=== PATIENT | female | born 2005 ===

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

== ENCOUNTER 2023-03-26 15:07 | Emergency (ER) | payer MEDICAID, SELFPAY ==
--- NOTE | ~2023-03-26 | US_ITS ---
EXAMINATION: US OBSTETRICAL ULTRASOUND CLINICAL INFORMATION: Vaginal spotting. Positive COMPARISON: None available.. LMP: 02/10/2023. Gestational age by maternal dates is 6 weeks 2 days. Estimated date of delivery by maternal dates is 11/17/2023. TECHNIQUE: Transabdominal endovaginal pelvic ultrasound FINDINGS: There is a single intrauterine gestational sac with visible yolk sac, embryo/fetus, and cardiac activity. There is no significant subchorionic hemorrhage or hematoma. HR: 118 beats per minute. CRL (crown rump length): 0.86 cm (6 weeks 6 days +/- 4 days). ROSA ISELA (estimated date of delivery): 11/13/2023 +/- 4 days. MATERNAL ADNEXA: The right maternal ovary measures 3.6 x 2.1 x 3.0 cm. Corpus luteal cyst measuring 2 cm The left maternal ovary not visualized. There is no significant maternal adnexal mass. No maternal pelvic ascites. Trace implantation bleed noted. US/US OB <= 14 weeks fetus IMPRESSION: 1. Single intrauterine gestation with ultrasound gestational age of 6 weeks 6 days +/- 4 days. 2. Estimated date of delivery is 11/13/2023 +/- 4 days. 3. No maternal adnexal mass or pelvic ascites.
[2023-03-26 15:27] VITALS: BP 122/80; PULSE 90; RESP 16; TEMP 36.6; O2SAT 99; BMI 19.9
--- NOTE | 2023-03-26 15:30 | ED_ITS ---
HPI - General Adult General Chief complaint: Vaginal Bleeding <SALVADOR Crow - Last Filed: 03/28/23 12:28> Stated complaint: /bleeding <SALVADOR Crow - Last Filed: 03/28/23 12:28> Time Seen by Provider: 03/26/23 19:29 <SALVADOR Crow - Last Filed: 03/28/23 12:28> Source: patient and family <Wendy Sexton MD - Last Filed: 03/26/23 20:46> Mode of arrival: ambulatory <Wendy Sexton MD - Last Filed: 03/26/23 20:46> History of Present Illness HPI narrative: 17-year-old female who knows that she is and presents with complaints of some very mild, 1 time, vaginal spotting on tele paper this morning. She otherwise denies any lower abdominal cramping. <Wendy Sexton MD - Last Filed: 03/26/23 20:46> Related Data Home medications: Previous Rx's Medication Instructions Recorded cetirizine 10 mg capsule (Allergy 10 mg PO DAILY PRN allergy 09/09/21 Relief (cetirizine)) symptoms #20 caps fluticasone propionate 50 1 spray intranasal DAILY #16 grams 09/09/21 mcg/actuation nasal spray,suspension (Flonase Allergy Relief) pyridoxine (vitamin B6) 25 mg 25 mg PO TID #90 tabs 03/26/23 tablet <SALVADOR Crow - Last Filed: 03/28/23 12:28> Allergies/adverse reactions: Allergies Allergy/AdvReac Type Severity Reaction Status Date / Time No Known Allergies Allergy Verified 03/26/23 15:26 [No Known Allergies*] <SALVADOR Crow - Last Filed: 03/28/23 12:28> Review of Systems Review of Systems: Pertinent positives and negatives as stated in HPI <Wendy Sexton MD - Last Filed: 03/26/23 20:46> PMFSH Past Medical History Source: nursing notes reviewed <Wendy Sexton MD - Last Filed: 03/26/23 20:46> Medical History: Medical History Patient denies medical problems <SALVADOR Crow - Last Filed: 03/28/23 12:28> Social History Social History: Social History Advance Directives: No Advance Directives Information Provided: No <SALVADOR Crow - Last Filed: 03/28/23 12:28> Physical Exam ED Vital Signs: Vital Signs - 24 hr 03/26/23 15:27 Temperature 97.9 F Pulse Rate 90 Respiratory Rate 16 Blood Pressure 122/80 Pulse Oximetry 99 Oxygen Delivery Method Room Air BMI result Body Mass Index 19.9 <SALVADOR Crow - Last Filed: 03/28/23 12:28> Vital Signs - 24 hr 03/26/23 15:27 Temperature 97.9 F Pulse Rate 90 Respiratory Rate 16 Blood Pressure 122/80 Pulse Oximetry 99 Oxygen Delivery Method Room Air BMI result Body Mass Index 19.9 VITAL SIGNS: Reviewed. GENERAL: Well developed, well nourished, in no acute distress. HEAD: Normocephalic/atraumatic EYES: PERRLA, EOMI EARS: Ext canals without abnormality NOSE: Nares patent bilateral OROPHARYNX: no oral lesions noted, posterior pharynx clear NECK: Supple, no adenopathy LUNGS: Normal breath sounds. No adventitious sounds or accessory muscle use. SpO2<99> CARDIOVASCULAR: Regular rate and rhythm without noted murmurs, ABDOMEN: Soft, non-tender, non-distended with bowel sounds. MUSCULOSKELETAL: No tenderness, deformities, or effusions noted on gross inspection. EXTREMITIES: No cyanosis, clubbing or edema. SKIN: Inspection of the skin reveals no rashes NEUROLOGIC: Alert and oriented x 4. Strength and sensation to light touch were grossly intact x 4. <Wendy Sexton MD - Last Filed: 03/26/23 20:46> Course Course Course Narrative: RME: 17 yold female presents to the ED for and vaginal spotting after urinating. no abdominal pain, nausea, fever, chills, or flank pain. . labs, ultrasound ordered and uA <SALVADOR Crow - Last Filed: 03/28/23 12:28> Medical Decision Making Medical Decision Making MDM Narrative: 17-year-old female with LMP this suggests a 6 week and 3-day-old fetus and experiencing some -related nausea but denies any vomiting. She states she is otherwise in her usual state of health and has followed up with her primary care provider who is referred her to see an pleat patternmaker. I reviewed all investigations and patient is a positive precluding the necessity for RhoGAM. She is otherwise hemodynamically stable. Ultrasound demonstrates an IUP without subchorionic hemorrhage but does note a trace implantation bleed. Estimation of dates are 6 weeks and 6 days. Patient was given all results, p lans and understands that she will be receiving a prescription for antinausea which she should take each day to help stay well hydrated. <Wendy Sexton MD - Last Filed: 03/26/23 20:46> Differential Diagnosis Please see the discussion above <Wendy Sexton MD - Last Filed: 03/26/23 20:46> Lab Data Please see the discussion above <Wendy Sexton MD - Last Filed: 03/26/23 20:46> Result Diagrams: 03/26/23 16:00 03/26/23 16:00 <SALVADOR Crow - Last Filed: 03/28/23 12:28> Labs: Lab Results 03/26/23 03/26/23 03/26/23 Range/Units 15:48 15:49 16:00 WBC 8.1 (4.8-10.8) X10*3/uL RBC 4.32 (4.20-5.50) X10*6/uL Hgb 12.3 (12.0-16.0) g/dl Hct 36.3 L (37.0-47.0) % MCV 84.0 (80.0-98.0) fL MCH 28.5 (27.0-33.0) pg MCHC 33.9 (31.0-35.0) g/dl RDW 14.0 (11.0-16.0) % Plt Count 288 (160-400) X10*3/uL MPV 9.3 L (9.4-12.3) fL Immature Gran % (Auto) 0.2 (0.0-0.4) % Neut % (Auto) 68.4 (45-73) % Lymph % (Auto) 23.8 (20-40) % Robeson % (Auto) 6.5 (2-11) % Eos % (Auto) 0.6 (0-4) % Baso % (Auto) 0.5 (0-2) % Lymph # (Auto) 1.9 (1.2-4.9) X10*3/uL [place] # (Auto) 0.5 (0.1-1.2) X10*3/uL Eos # (Auto) 0.1 (0.0-0.4) X10*3/uL Baso # (Auto) 0.0 (0.0-0.2) X10*3/uL Abs Immat Gran (auto) 0.02 (0.00-0.03) X10*3/uL Absolute Neuts (auto) 5.5 (2.0-8.3) x10*3/uL Absolute Nucleated RBC 0.000 (0.0-0.012) X10*3/uL Nucleated RBC % (auto) 0.0 (0.0-0.2) /100WBC PT (10.0-13.1) SEC INR (0.9-1.1) APTT (26.0-36.4) SEC Sodium (135-145) mmol/L Potassium (3.3-5.1) mmol/L Chloride (96-108) mmol/L Carbon Dioxide (22-29) mmol/L Anion Gap (12-20) BUN (9-16) mg/dL Creatinine (0.5-1.4) mg/dL Estim Creat Clear Calc Estimated GFR Random Glucose (60-115) mg/dL Calcium (8.4-10.2) mg/dL Total Bilirubin (0.0-1.0) mg/dL AST (5-31) U/L ALT (0-31) U/L Alkaline Phosphatase (39-117) U/L Total Protein (6.5-8.0) g/dL Albumin (3.5-5.0) g/dL Urine Color Dark Yellow Urine Appearance Turbid Urine pH >= 9.0 (5.0-9.0) Ur Specific [place] 1.020 (1.005-1.025) Urine Protein 30 (1+) H (Neg-Trace) mg/dL Urine Glucose (UA) Negative (Negative) mg/dL Urine Ketones 15 (Negative) mg/dL Urine Blood Negative (Negative) Urine Nitrite Negative (Negative) Ur Leukocyte Esterase Negative (Negative) Urine RBC 0-2 (0-2) /HPF Urine WBC 0-5 (0-5) /HPF Ur Squamous Epith Cells 3-5 (0-2) /HPF Urine Bacteria Trace (None Seen) Hyaline Casts 0-2 (0-2) /LPF Urine Test POSITIVE H (NEGATIVE) Blood Type 03/26/23 03/26/23 03/26/23 Range/Units 16:00 16:00 16:00 WBC (4.8-10.8) X10*3/uL RBC (4.20-5.50) X10*6/uL Hgb (12.0-16.0) g/dl Hct (37.0-47.0) % MCV (80.0-98.0) fL MCH (27.0-33.0) pg MCHC (31.0-35.0) g/dl RDW (11.0-16.0) % Plt Count (160-400) X10*3/uL MPV (9.4-12.3) fL Immature Gran % (Auto) (0.0-0.4) % Neut % (Auto) (45-73) % Lymph % (Auto) (20-40) % Robeson % (Auto) (2-11) % Eos % (Auto) (0-4) % Baso % (Auto) (0-2) % Lymph # (Auto) (1.2-4.9) X10*3/uL [place] # (Auto) (0.1-1.2) X10*3/uL Eos # (Auto) (0.0-0.4) X10*3/uL Baso # (Auto) (0.0-0.2) X10*3/uL Abs Immat Gran (auto) (0.00-0.03) X10*3/uL Absolute Neuts (auto) (2.0-8.3) x10*3/uL Absolute Nucleated RBC (0.0-0.012) X10*3/uL Nucleated RBC % (auto) (0.0-0.2) /100WBC PT 12.5 (10.0-13.1) SEC INR 1.1 (0.9-1.1) APTT 28.2 (26.0-36.4) SEC Sodium 139 (135-145) mmol/L Potassium 4.1 (3.3-5.1) mmol/L Chloride 105 (96-108) mmol/L Carbon Dioxide 27 (22-29) mmol/L Anion Gap 11 L (12-20) BUN 7 L (9-16) mg/dL Creatinine 0.68 (0.5-1.4) mg/dL Estim Creat Clear Calc 95.5 Estimated GFR > 60 Random Glucose 80 (60-115) mg/dL Calcium 10.6 H D (8.4-10.2) mg/dL Total Bilirubin 0.7 (0.0-1.0) mg/dL AST 19 (5-31) U/L ALT 11 (0-31) U/L Alkaline Phosphatase 54 (39-117) U/L Total Protein 8.1 H (6.5-8.0) g/dL Albumin 4.9 (3.5-5.0) g/dL Urine Color Urine Appearance Urine pH (5.0-9.0) Ur Specific [place] (1.005-1.025) Urine Protein (Neg-Trace) mg/dL Urine Glucose (UA) (Negative) mg/dL Urine Ketones (Negative) mg/dL Urine Blood (Negative) Urine Nitrite (Negative) Ur Leukocyte Esterase (Negative) Urine RBC (0-2) /HPF Urine WBC (0-5) /HPF Ur Squamous Epith Cells (0-2) /HPF Urine Bacteria (None Seen) Hyaline Casts (0-2) /LPF Urine Test (NEGATIVE) Blood Type A Positive <SALVADOR Crow - Last Filed: 03/28/23 12:28> Lab Results 03/26/23 03/26/23 03/26/23 Range/Units 15:48 15:49 16:00 WBC 8.1 (4.8-10.8) X10*3/uL RBC 4.32 (4.20-5.50) X10*6/uL Hgb 12.3 (12.0-16.0) g/dl Hct 36.3 L (37.0-47.0) % MCV 84.0 (80.0-98.0) fL MCH 28.5 (27.0-33.0) pg MCHC 33.9 (31.0-35.0) g/dl RDW 14.0 (11.0-16.0) % Plt Count 288 (160-400) X10*3/uL MPV 9.3 L (9.4-12.3) fL Immature Gran % (Auto) 0.2 (0.0-0.4) % Neut % (Auto) 68.4 (45-73) % Lymph % (Auto) 23.8 (20-40) % [place] % (Auto) 6.5 (2-11) % Eos % (Auto) 0.6 (0-4) % Baso % (Auto) 0.5 (0-2) % Lymph # (Auto) 1.9 (1.2-4.9) X10*3/uL [place] # (Auto) 0.5 (0.1-1.2) X10*3/uL Eos # (Auto) 0.1 (0.0-0.4) X10*3/uL Baso # (Auto) 0.0 (0.0-0.2) X10*3/uL Abs Immat Gran (auto) 0.02 (0.00-0.03) X10*3/uL Absolute Neuts (auto) 5.5 (2.0-8.3) x10*3/uL Absolute Nucleated RBC 0.000 (0.0-0.012) X10*3/uL Nucleated RBC % (auto) 0.0 (0.0-0.2) /100WBC PT (10.0-13.1) SEC INR (0.9-1.1) APTT (26.0-36.4) SEC Sodium (135-145) mmol/L Potassium (3.3-5.1) mmol/L Chloride (96-108) mmol/L Carbon Dioxide (22-29) mmol/L Anion Gap (12-20) BUN (9-16) mg/dL Creatinine (0.5-1.4) mg/dL Estim Creat Clear Calc Estimated GFR Random Glucose (60-115) mg/dL Calcium (8.4-10.2) mg/dL Total Bilirubin (0.0-1.0) mg/dL AST (5-31) U/L ALT (0-31) U/L Alkaline Phosphatase (39-117) U/L Total Protein (6.5-8.0) g/dL Albumin (3.5-5.0) g/dL Urine Color Dark Yellow Urine Appearance Turbid Urine pH >= 9.0 (5.0-9.0) Ur Specific [place] 1.020 (1.005-1.025) Urine Protein 30 (1+) H (Neg-Trace) mg/dL Urine Glucose (UA) Negative (Negative) mg/dL Urine Ketones 15 (Negative) mg/dL Urine Blood Negative (Negative) Urine Nitrite Negative (Negative) Ur Leukocyte Esterase Negative (Negative) Urine RBC 0-2 (0-2) /HPF Urine WBC 0-5 (0-5) /HPF Ur Squamous Epith Cells 3-5 (0-2) /HPF Urine Bacteria Trace (None Seen) Hyaline Casts 0-2 (0-2) /LPF Urine Test POSITIVE H (NEGATIVE) Blood Type 03/26/23 03/26/23 03/26/23 Range/Units 16:00 16:00 16:00 WBC (4.8-10.8) X10*3/uL RBC (4.20-5.50) X10*6/uL Hgb (12.0-16.0) g/dl Hct (37.0-47.0) % MCV (80.0-98.0) fL MCH (27.0-33.0) pg MCHC (31.0-35.0) g/dl RDW (11.0-16.0) % Plt Count (160-400) X10*3/uL MPV (9.4-12.3) fL Immature Gran % (Auto) (0.0-0.4) % Neut % (Auto) (45-73) % Lymph % (Auto) (20-40) % [place]eson % (Auto) (2-11) % Eos % (Auto) (0-4) % Baso % (Auto) (0-2) % Lymph # (Auto) (1.2-4.9) X10*3/uL [place] # (Auto) (0.1-1.2) X10*3/uL Eos # (Auto) (0.0-0.4) X10*3/uL Baso # (Auto) (0.0-0.2) X10*3/uL Abs Immat Gran (auto) (0.00-0.03) X10*3/uL Absolute Neuts (auto) (2.0-8.3) x10*3/uL Absolute Nucleated RBC (0.0-0.012) X10*3/uL Nucleated RBC % (auto) (0.0-0.2) /100WBC PT 12.5 (10.0-13.1) SEC INR 1.1 (0.9-1.1) APTT 28.2 (26.0-36.4) SEC Sodium 139 (135-145) mmol/L Potassium 4.1 (3.3-5.1) mmol/L Chloride 105 (96-108) mmol/L Carbon Dioxide 27 (22-29) mmol/L Anion Gap 11 L (12-20) BUN 7 L (9-16) mg/dL Creatinine 0.68 (0.5-1.4) mg/dL Estim Creat Clear Calc 95.5 Estimated GFR > 60 Random Glucose 80 (60-115) mg/dL Calcium 10.6 H D (8.4-10.2) mg/dL Total Bilirubin 0.7 (0.0-1.0) mg/dL AST 19 (5-31) U/L ALT 11 (0-31) U/L Alkaline Phosphatase 54 (39-117) U/L Total Protein 8.1 H (6.5-8.0) g/dL Albumin 4.9 (3.5-5.0) g/dL Urine Color Urine Appearance Urine pH (5.0-9.0) Ur Specific [place] (1.005-1.025) Urine Protein (Neg-Trace) mg/dL Urine Glucose (UA) (Negative) mg/dL Urine Ketones (Negative) mg/dL Urine Blood (Negative) Urine Nitrite (Negative) Ur Leukocyte Esterase (Negative) Urine RBC (0-2) /HPF Urine WBC (0-5) /HPF Ur Squamous Epith Cells (0-2) /HPF Urine Bacteria (None Seen) Hyaline Casts (0-2) /LPF Urine Test (NEGATIVE) Blood Type A Positive <Wendy Sexton MD - Last Filed: 03/26/23 20:46> Radiology Impression Radiologist Impression: My interpretation is in agreement with radiology's impression of the imaging studies. <Wendy Sexton MD - Last Filed: 03/26/23 20:46> Discharge Plan Discharge Clinical Impression: , First trimester bleeding <SALVADOR Crow - Last Filed: 03/28/23 12:28> Patient Disposition: Home, Self-Care <SALVADOR Crow - Last Filed: 03/28/23 12:28> Instructions: (ED) <SALVADOR Crow - Last Filed: 03/28/23 12:28> Additional Instructions: 1. Ely meagn agua y solo tome Tylenol para cualquier dolor, molestia o dolor de camille. 2. Contin?e tomando tomas vitaminas prenatales. 3. Le gutierrez recetado un medicamento contra las n?useas y debe tomarlo seg?n lo prescrito. 4. Acuda a todas las citas de seguimiento de cabrera embarazo. Regrese a la bryce de emergencias si los s?ntomas empeoran. 1. Drink plenty of water and only take Tylenol for any aches, pains, headaches. 2. Continue to take your vitamins. 3. You have been given a prescription for antinausea medication and should take this as prescribed. 4. Please keep all follow-up appointments for your . Return to the ER for any worsening symptoms. <SALVADOR Crow - Last Filed: 03/28/23 12:28> Prescriptions: New pyridoxine (vitamin B6) 25 mg tablet 25 mg PO TID Qty: 90 0RF No Action Allergy Relief (cetirizine) 10 mg capsule 10 mg PO DAILY PRN (Reason: allergy symptoms) Qty: 20 0RF fluticasone propionate [Flonase Allergy Relief] 50 mcg/actuation spray,suspension 1 spray intranasal DAILY Qty: 16 0RF Rx Instructions: administer into each nostril <SALVADOR Crow - Last Filed: 03/28/23 12:28> Interventions: ED Discharge Assessment Last Done: 03/26/23 20:50 <SALVADOR Crow Last Filed: 03/28/23 12:28> Discharge Date/Time: 03/26/23 20:52 <SALVADOR Crow - Last Filed: 03/28/23 12:28> Print Language: Syriac <SALVADOR Crow - Last Filed: 03/28/23 12:28>
[2023-03-26 15:55] LABS: UPreg QC Valid YES; Urine Pregnancy POSITIVE (NEGATIVE)
[2023-03-26 15:56] LABS: Appearance Urine Turbid; Color Urine Dark Yellow; Glucose Urine UA Negative (Negative); Leukocyte Esterase Urine Negative (Negative); Nitrite Urine Negative (Negative); PH >= 9.0 (5.0-9.0); UMIC TRIGGER UACC YES; Urine Blood Negative (Negative); Urine Ketones 15 mg/dL (Negative); Urine Protein 30 (1+) mg/dL (Neg-Trace)
[2023-03-26 16:01] LABS: Bacteria Urine Trace (None Seen); Hyaline Casts Urine 0-2 /LPF (0-2); RBC Urine 0-2 /HPF (0-2); WBC Urine 0-5 /HPF (0-5)
[2023-03-26 16:06] LABS: MANUAL DIFF FLAG NO
[2023-03-26 16:07] LABS: Basophils Percent Auto 0.5 % (0-2); Eosinophils Absolute Auto 0.1 X10*3/uL (0.0-0.4); Eosinophils Percent Auto 0.6 % (0-4); Hematocrit 36.3 % (37.0-47.0); Hemoglobin 12.3 g/dl (12.0-16.0); Imm Gran Abs Auto 0.02 X10*3/uL (0.00-0.03); Imm Gran Pct Auto 0.2 % (0.0-0.4); Lymphocytes Absolute Auto 1.9 X10*3/uL (1.2-4.9); Lymphocytes Percent Auto 23.8 % (20-40); Mean Corpuscular HGB Conc 33.9 g/dl (31.0-35.0); Mean Corpuscular Hemoglobin 28.5 pg (27.0-33.0); Mean Platelet Volume 9.3 fL (9.4-12.3); Monocytes Absolute Auto 0.5 X10*3/uL (0.1-1.2); Monocytes Percent Auto 6.5 % (2-11); Neutrophils Absolute Auto 5.5 x10*3/uL (2.0-8.3); Neutrophils Percent Auto 68.4 % (45-73); Platelet Count 288 X10*3/uL (160-400); Red Blood Count 4.32 X10*6/uL (4.20-5.50); White Blood Count 8.1 X10*3/uL (4.8-10.8)
[2023-03-26 16:14] LABS: INTERNATIONAL NORM RATIO 1.1 (0.9-1.1); Prothrombin Time 12.5 SEC (10.0-13.1)
[2023-03-26 16:16] LABS: Partial Thromboplastin Time 28.2 SEC (26.0-36.4)
[2023-03-26 16:21] LABS: Alanine Aminotransferase 11 U/L (0-31); Albumin Level 4.9 g/dL (3.5-5.0); Alkaline Phosphatase 54 U/L (39-117); Anion Gap 11 (12-20); Aspartate Amino Transferase 19 U/L (5-31); Bilirubin Total 0.7 mg/dL (0.0-1.0); Blood Urea Nitrogen 7 mg/dL (9-16); Calcium 10.6 mg/dL (8.4-10.2); Carbon Dioxide 27 mmol/L (22-29); Chloride 105 mmol/L (96-108); Creatinine Clr Calc Pharmacy 95.5; Estimated Glomerular Filt Rate > 60; Glucose Random 80 mg/dL (60-115); Potassium 4.1 mmol/L (3.3-5.1); Sodium 139 mmol/L (135-145); Total Protein 8.1 g/dL (6.5-8.0)
== END 2023-03-26 20:52 | disposition home or self-care (01) ==
PROVIDERS: Physician Assistant; Emergency Provider Student in an Organized Health Care Education/Training Program
DX: O20.9 Hemorrhage in early pregnancy, unspecified (principal); Z3A.01 Less than 8 weeks gestation of pregnancy; Z79.899 Other long term (current) drug therapy
CPT/HCPCS: 36415; 76801; 80053; 81001; 81025; 85025; 85610; 85730; 86900; 86901; 99282; 99283; 99284

== ENCOUNTER 2024-04-13 08:48 | Emergency (ER) | payer MEDICAID, SELFPAY ==
[2024-04-13 09:01] VITALS: BP 125/82; PULSE 114; RESP 15; TEMP 36.6; O2SAT 98; BMI 20.6
[2024-04-13 09:20] LABS: Appearance Urine Hazy; Color Urine Yellow; Glucose Urine UA Negative (Negative); Leukocyte Esterase Urine Negative (Negative); Nitrite Urine Negative (Negative); Specific Gravity - Urine >= 1.030 (1.005-1.025); Urine Blood Negative (Negative); Urine Ketones >=80 mg/dL (Negative); Urine Protein Trace mg/dL (Neg-Trace)
[2024-04-13 09:21] LABS: Basophils Percent Auto 0.2 % (0-2); Eosinophils Percent Auto 0.3 % (0-4); Hematocrit 40.2 % (37.0-47.0); Hemoglobin 13.7 g/dl (12.0-16.0); Imm Gran Abs Auto 0.04 X10*3/uL (0.00-0.03); Imm Gran Pct Auto 0.4 % (0.0-0.4); Lymphocytes Absolute Auto 0.3 X10*3/uL (1.2-4.9); Lymphocytes Percent Auto 3.4 % (20-40); MANUAL DIFF FLAG SCAN; Mean Corpuscular HGB Conc 34.1 g/dl (31.0-35.0); Mean Corpuscular Hemoglobin 29.9 pg (27.0-33.0); Mean Corpuscular Volume 87.8 fL (80.0-98.0); Mean Platelet Volume 9.5 fL (9.4-12.3); Monocytes Absolute Auto 0.4 X10*3/uL (0.1-1.2); Monocytes Percent Auto 3.8 % (2-11); Neutrophils Absolute Auto 8.9 x10*3/uL (2.0-8.3); Neutrophils Percent Auto 91.9 % (45-73); Platelet Count 288 X10*3/uL (160-400); Red Blood Count 4.58 X10*6/uL (4.20-5.50); Red Cell Distribution Width 12.4 % (11.0-16.0); SCAN SMEAR FLAG 1; UPreg QC Valid YES; Urine Pregnancy NEGATIVE (NEGATIVE); White Blood Count 9.7 X10*3/uL (4.8-10.8)
[2024-04-13 09:33] LABS: Alanine Aminotransferase 8 U/L (0-31); Albumin Level 4.8 g/dL (3.5-5.0); Alkaline Phosphatase 110 U/L (39-117); Anion Gap 17 (12-20); Aspartate Amino Transferase 16 U/L (5-31); Bilirubin Direct 0.2 mg/dL (0.0-0.5); Bilirubin Total 0.6 mg/dL (0.0-1.0); Blood Urea Nitrogen 12 mg/dL (9-16); Calcium 9.8 mg/dL (8.4-10.2); Carbon Dioxide 21 mmol/L (22-29); Chloride 108 mmol/L (96-108); Creatinine Clr Calc Pharmacy 97.2; Estimated Glomerular Filt Rate > 60; Glucose Random 124 mg/dL (60-115); Lipase 9 U/L (8-78); Potassium 4.1 mmol/L (3.3-5.1); Sodium 142 mmol/L (135-145); Total Protein 7.9 g/dL (6.5-8.0)
[2024-04-13 09:42] LABS: SLIDE REVIEW VERIFIED
--- NOTE | 2024-04-13 11:18 | ED_ITS ---
HPI - Nausea/Vomiting/Diarrhea General Chief complaint: Nausea/Vomiting/Diarrhea Stated complaint: vomitting Time Seen by Provider: 04/13/24 16:02 Source: patient, RN notes reviewed, old records reviewed and stunner Mode of arrival: ambulatory Limitations: language barrier History of Present Illness HPI Narrative: 18-year-old female who denies any past medical history presents for evaluation of vomiting. Patient reports that her symptoms started around 1:00 a.m. this morning. She states that they worsened between 5 and 6:00 a.m.. She reports vomiting with diarrhea. She reports generalized abdominal pain Denies any history abdominal surgeries. Denies any fevers, chills, sick contacts Denies any burning with urination black or bloody stool Denies any recent travel She rates her overall discomfort as 5/10 and achy She endorses associated weakness Associated nausea: Yes Related Data Previous Rx's ?Medication ?Instructions ?Recorded cetirizine 10 mg capsule (Allergy 10 mg PO DAILY PRN allergy 09/09/21 Relief (cetirizine)) symptoms #20 caps fluticasone propionate 50 1 spray intranasal DAILY #16 grams 09/09/21 mcg/actuation nasal spray,suspension (Flonase Allergy Relief) pyridoxine (vitamin B6) 25 mg 25 mg PO TID #90 tabs 03/26/23 tablet ondansetron 4 mg disintegrating 4 mg PO Q8H PRN nausea and 04/13/24 tablet vomiting #20 tabs Allergies Allergy/AdvReac Type Severity Reaction Status Date / Time seafood Allergy Swelling Verified 04/13/24 09:04 Review of Systems 2 Constitutional: Constitutional: Denies body ache(s), Denies chills, Denies fever(s), Denies headache(s), Reports malaise and Reports weakness Eyes: Eyes: Denies blurry vision ENT: Denies headache(s) and Denies sore throat Cardiovascular: Cardiovascular: Denies chest pain and Denies dyspnea Respiratory: Respiratory: Denies cough and Denies dyspnea Gastrointestinal: Gastrointestinal: Reports abdominal pain, Denies hematochezia, Denies GI cramping, Denies diarrhea, Denies loose stools, Reports nausea and Reports vomiting Genitourinary: Genitourinary: Denies difficulty voiding Musculoskeletal: Musculoskeletal: Denies back pain Neurologic: Denies headache(s) and Reports weakness PMFSH Past Medical History Medical History Patient denies medical problems Social History Social History Smoked in Last 30 Days: No Use of substances other than those prescribed or required for medical reasons: No Advance Directives: No Advance Directives Information Provided: Yes Do you have a plan to hurt others: No Plan Patient : No Physical Exam 2 Vital Signs: Vital Signs: Last Vital Signs Temp 98 F 04/13/24 18:21 Pulse 82 04/13/24 18:21 Resp 16 04/13/24 18:21 BP 111/63 04/13/24 18:21 Pulse Ox 99 04/13/24 18:21 O2 Del Method Room Air 04/13/24 18:21 BMI result Body Mass Index 20.6 Const: General: healthy appearing, comfortable, no acute distress, alert and awake Nutritional Appearance: well nourished Orientation/consciousness: p atient oriented x3 HEENT: Head: Yes normocephalic and Yes atraumatic Eyes: Eyelids: Yes eyelids normal Conjunctivae: conjunctivae normal S clerae: sclerae normal Corneas: corneas normal Pupils: Equal, round and reactive pupils present EOM: EOMs intact bilaterally Neck: Neck: Yes full ROM Resp: Effort & Inspection: normal respiratory effort, able to speak in complete sentences, no audible wheezes and not labored Auscultation: clear to auscultation bilaterally Cardio: Rate: regular rate Rhythm: regular rhythm GI: Inspection: No distended Palpation (GI): Soft to palpation, not firm, nontender, no guarding and not rigid Skin: General skin exam: elasticity normal Neuro: General: patient oriented x3 Cranial nerves: Yes Equal, round and reactive pupils present and Yes Bilaterally intact EOM present Cognition (Neuro): normal cognition Course Course Course Narrative: This is a rapid medical exam. Deferred additional HPI, ROS, PE to primary provider. 18yo female with no known medical history here with vomiting, diarrhea, generalized abdominal pain since 12pm. No recent travel or sick contact. Will obtain labs, UA, ur preg, viral testing. VSS -A.Pascucci [employer]IC Medications Administered Discontinued Medications Generic Name Dose Route Start Last Admin Trade Name Freq PRN Reason Stop Dose Admin Sodium Chloride 1,000 mls @ 999 mls/hr 04/13/24 16:15 04/13/24 16:38 Ns IV 04/13/24 17:15 999 mls/hr .Q1H1M ERMA Administration Ketorolac Tromethamine 15 mg 04/13/24 16:14 04/13/24 16:37 Ketorolac Tromethamine 15 Mg/Ml Vial IVPUSH 04/13/24 16:15 15 mg ONCE ONE Administration Ondansetron HCl 4 mg 04/13/24 11:20 04/13/24 11:23 Ondansetron Odt 4 Mg Tab.Rapdis TRANSLINGU 04/13/24 11:21 4 mg ONCE ONE Administration Ondansetron HCl 4 mg 04/13/24 16:14 04/13/24 16:37 Ondansetron Hcl 4 Mg/2 Ml Vial IVPUSH 04/13/24 16:15 4 mg ONCE ONE Administration Pantoprazole Sodium 40 mg 04/13/24 16:14 04/13/24 16:37 Pantoprazole Sodium 40 Mg/10 Ml Vial IVPUSH 04/13/24 16:15 40 mg ONCE ONE Administration Medical Decision Making Medical Decision Making [facility] Narrative: 18-year-old female who has no significant past medical history presents for evaluation of generalized abdominal pain with vomiting and diarrhea. Clinically her symptoms are most consistent with a gastroenteritis. Her physical exam is reassuring, she has no focal tenderness. There is no distention or firmness to her abdomen, no guarding. She has multiple ketones in her urine, plan to treat with IV fluids, Protonix and Toradol for discomfort. She has not . Will re-evaluate but at this point I do not feel it is any indication to scan the patient as I have a low suspicion for cholecystitis or acute appendicitis or other surgical pathology Differential Diagnosis Differential Diagnoses: The differential diagnosis associated with the presentation includes Gastroenteritis Upper abdominal pain Colitis Gastritis Acute appendicitis less likely Cholecystitis less likely Lab Data [facility] Lab Attestation statement: I reviewed the patient's lab results. No leukocytosis. No anemia. Normal platelet count. No electrolyte abnormalities. The patient is not 04/13/24 09:10 04/13/24 09:10 Labs: Lab Results 04/13/24 04/13/24 Range/Units 09:10 11:23 WBC 9.7 (4.8-10.8) X10*3/uL RBC 4.58 (4.20-5.50) X10*6/uL Hgb 13.7 (12.0-16.0) g/dl Hct 40.2 (37.0-47.0) % MCV 87.8 (80.0-98.0) fL MCH 29.9 (27.0-33.0) pg MCHC 34.1 (31.0-35.0) g/dl RDW 12.4 (11.0-16.0) % Plt Count 288 (160-400) X10*3/uL MPV 9.5 (9.4-12.3) fL Immature Gran % (Auto) 0.4 (0.0-0.4) % Neut % (Auto) 91.9 H (45-73) % Lymph % (Auto) 3.4 L (20-40) % [place] % (Auto) 3.8 (2-11) % Eos % (Auto) 0.3 (0-4) % Baso % (Auto) 0.2 (0-2) % Lymph # (Auto) 0.3 L (1.2-4.9) X10*3/uL [place] # (Auto) 0.4 (0.1-1.2) X10*3/uL Eos # (Auto) 0.0 (0.0-0.4) X10*3/uL Baso # (Auto) 0.0 (0.0-0.2) X10*3/uL Abs Immat Gran (auto) 0.04 H (0.00-0.03) X10*3/uL Absolute Neuts (auto) 8.9 H (2.0-8.3) x10*3/uL Absolute Nucleated RBC 0.000 (0.0-0.012) X10*3/uL Nucleated RBC % (auto) 0.0 (0.0-0.2) /100WBC Smear Tech's Comments VERIFIED Sodium 142 (135-145) mmol/L Potassium 4.1 (3.3-5.1) mmol/L Chloride 108 (96-108) mmol/L Carbon Dioxide 21 L (22-29) mmol/L Anion Gap 17 (12-20) BUN 12 (9-16) mg/dL Creatinine 0.73 (0.5-1.4) mg/dL Estim Creat Clear Calc 97.2 Estimated GFR > 60 Random Glucose 124 H (60-115) mg/dL Calcium 9.8 D (8.4-10.2) mg/dL Total Bilirubin 0.6 (0.0-1.0) mg/dL Direct Bilirubin 0.2 (0.0-0.5) mg/dL AST 16 (5-31) U/L ALT 8 (0-31) U/L Alkaline Phosphatase 110 (39-117) U/L Total Protein 7.9 (6.5-8.0) g/dL Albumin 4.8 (3.5-5.0) g/dL Lipase 9 (8-78) U/L Urine Color Yellow Urine Appearance Hazy Urine pH 6.0 (5.0-9.0) Ur Specific Mineral >= 1.030 H (1.005-1.025) Urine Protein Trace (Neg-Trace) mg/dL Urine Glucose (UA) Negative (Negative) mg/dL Urine Ketones >=80 (Negative) mg/dL Urine Blood Negative (Negative) Urine Nitrite Negative (Negative) Ur Leukocyte Esterase Negative (Negative) Urine Test NEGATIVE (NEGATIVE) Influenza Type A (PCR) NEGATIVE (Negative) Influenza Type B (PCR) NEGATIVE (Negative) RSV RNA Qual (PCR) NEGATIVE (Negative) SARS-CoV-2 RNA (RT-PCR) NEGATIVE (Negative) Discharge Plan Discharge Clinical Impression: Abdominal pain, vomiting, and diarrhea Patient Disposition: Home, Self-Care Instructions: Acute Nausea and Vomiting (ED) Additional Instructions: Your workup in the ER today was reassuring. Drink lots of fluids, small sips at a time. You may use Zofran as needed for nausea/vomiting Prescriptions: New ondansetron 4 mg tablet,disintegrating 4 mg PO Q8H PRN (Reason: nausea and vomiting) Qty: 20 0RF No Action Allergy Relief (cetirizine) 10 mg capsule 10 mg PO DAILY PRN (Reason: allergy symptoms) Qty: 20 0RF fluticasone propionate [Flonase Allergy Relief] 50 mcg/actuation spray,suspension 1 spray intranasal DAILY Qty: 16 0RF Rx Instructions: administer into each nostril pyridoxine (vitamin B6) 25 mg tablet 25 mg PO TID Qty: 90 0RF Print Language: Icelandic
[2024-04-13 11:20] VITALS: BP 118/73; PULSE 102; RESP 14; TEMP 37.2; O2SAT 98
[2024-04-13] MEDS: Ondansetron ODT 4 MG TAB.RAPDIS TRANSLINGU (11:23)
[2024-04-13 12:25] LABS: Influenza A PCR NEGATIVE (Negative); Influenza B PCR NEGATIVE (Negative); Resp Syncy Virus RNA Qual PCR NEGATIVE (Negative); SARS COV2 PCR INHOUSE NEGATIVE (Negative)
[2024-04-13 15:02] VITALS: BP 117/69; PULSE 113; RESP 18; TEMP 37.3; O2SAT 100
[2024-04-13 16:04] VITALS: BP 111/71; PULSE 104; RESP 16; TEMP 36.9
[2024-04-13] MEDS: ondansetron HCL 4 MG/2 ML VIAL IVPUSH (16:37)
[2024-04-13] MEDS: Ketorolac Tromethamine 15 MG/ML VIAL IVPUSH (16:37)
[2024-04-13] MEDS: Pantoprazole Sodium 40 MG/10 ML VIAL IVPUSH (16:37)
[2024-04-13] MEDS: 0.9 % Sodium Chloride 1,000 ML 999 ML IV (16:38)
[2024-04-13 18:21] VITALS: BP 111/63; PULSE 82; RESP 16; TEMP 36.6; O2SAT 99
[2024-04-13 19:52] VITALS: BP 105/70; PULSE 80; RESP 16; TEMP 36.8; O2SAT 100
== END 2024-04-13 19:54 | disposition home or self-care (01) ==
PROVIDERS: Nurse Practitioner Family; Emergency Provider Internal Medicine
DX: R10.9 Unspecified abdominal pain (principal); R11.10 Vomiting, unspecified; R19.7 Diarrhea, unspecified; Z79.899 Other long term (current) drug therapy; Z03.818 Encounter for observation for suspected exposure to other biological agents ruled out
CPT/HCPCS: 0241U; 36415; 80048; 80076; 81003; 81025; 83690; 85025; 96361; 96374; 96375; 99284; C9113; J1885; J2405

== ENCOUNTER 2024-12-20 15:39 | Outpatient (REF) | payer MEDICAID, SELFPAY ==
--- OUTSIDE RECORDS SUMMARY | 2024-12-20 16:33 | XMS_ITS | Encounter Summary ---
Author Organization [employer] Address [address] [facility] 7t [place] [address] Care Team Providers Care Curing Oven Attendant Name Role Phone [facility] Primary Care Provider [phone] Encounter Details Date Type Department Care Team ([facility] st Contact Info) Description 12/20/2024 Orders Only [facility] [address] [place], [place] [phone] [facility] [address] [place] [address] Missed menses (Primary Dx) Social History Tobacco Use Types Packs/Day Years Used Date Smoking Tobacco: Never Smokeless Tobacco: Never Alcohol Use Standard Drinks/Week Comments Never 0 (1 standard drink = 0.6 oz pur e alcohol) Depression Answer Date Recorded Patient Health Questionnaire-9 Score 6 03/22/2023 Housing Stability Answer Date Recorded What is your housing situation today? I do not have housing (Staying with others, in a hotel, in a alf, living outside on the street, on a beach, in a car, or in a park 09/07/[address] you li ve. Do you have problems with any of the following? None of the above 09/07/2023 Food Insecurity Answer Date Recorded Within the past 12 months, y ou worried that your food would run out before you got money to buy more: Never True 09/22/2023 Within the past 12 months,th e food you bought just didn't last and you didn't have enough money to get more: Never True Transportation Answer Date Recorded In the past 12 months, has l ack of transportation kept you from medical appts, meetings, work or from getting things needed for daily living? No 09/22/2023 Utilities Answer Date Recorded In the past 12 months, has t he electric, gas, oil or water company threatened to shut off services in your home? No 09/22/2023 Depression Answer Date Recorded Patient Health Questionnaire-2 Score 2 03/22/2023 Comments Unknown Sex and Gender Information Value Date Recorded Sex Assigned at Female 09/26/2022 10:30 AM EDT Legal Sex Female 10:30 AM EDT Gender Identity Female 09/26/2022 10:30 AM EDT Sexual Orientation Straight 09/26/2022 10 :30 AM EDT documented as of this encounter Plan of Treatment Upcoming Encounters Date Type Department Care Team (Late st Contact Info) Description 02/05/2025 2:00 PM EDT Office Visit [facility] [address] [place] [id number] Libertad Zamarripa FNP [address] [place] [address] Scheduled Orders Name Type Priority Associated Diagnoses Orde r Schedule hCG, Total, Quantitative Lab Routine Missed menses Expected: 12/20/2024 (Approximate), Expires: 12/20/2025 documented as of this encounter Visit Diagnoses Diagnosis Missed menses- Primary documented in this encounter Additional Health Concerns Assessment Noted Time PHQ-9 Depression Total Score: 6 03/22/20 23 3:31 PM EDT documented as of this encounter Care Teams Curing Oven Attendant Relationship Specialty Start Date End Date Libertad Zamarripa FNP [address] [place] [phone] PCP - General Family Medicine 03/08/23 documented as of this encounter
--- OUTSIDE RECORDS SUMMARY | 2024-12-20 16:33 | XMS_ITS | Encounter Summary ---
Author Organization [employer] Address [address] [facility] 7t [place] [address] Care Team Providers Care Toxicology Supervisor Name Role Phone [facility] Primary Care Provider [phone] Reason for Visit * Reason Onset Date Comments Lab Orders 12/20/2024 Encounter Details Date Type Department Care Team ([facility] st Contact Info) Description 12/20/2024 Telephone [facility] [address] [place], [place] [phone] [facility] [address] [place] [address] Lab Orders Social History Tobacco Use Types Packs/Day Years [...] with others, in a hotel, in a fci, living outside on the street, on a [...] AM EDT documented as of this encounter Miscellaneous Notes * Telephone Encounter - Madalyn Silva RN - 12/20/2024 12:37 PM EST Incoming call from the pt . Pt requested the lab hours . Pt was advised to go to the lab before 430pm . Pt verbalized understanding ,and agrees with the plan. * Telephone Encounter - Madalyn Silva RN - 12/20/2024 12:02 PM EST Telephone call to to advise the pt the requested lab order was placed and that the order was sent to the [facility] lab ,and [facility] lab . Message was also left for the pt to call the red team nurse with any questions . Pt to follow up PRN. * Telephone Encounter - Madalyn Silva RN - 12/20/2024 9:39 AM EST Telephone call to the pt regarding the previous message . Pt states she has not had a period this month . States last month the period was light with only brown spots . States 1 month ago she took aroldo home test which was negative . States the at home test taken yesterday had afaint pink line ,was positive . Pt is requesting a blood test for to confirm please . Pt ws advised that this message will be sent to her PCP for review ,and that she will be called back with the response from her doctor . Pt verbalized understanding ,and agrees with the plan. Will route this message to [facility] for review . TY. * Telephone Encounter - Nik Connolly - 12/20/2024 8:48 AM EST TC from pt requesting a Lab order to get a Blood Test. Pt took test but Had had A positive and a negative and pt hasn't had period in about 2 months. Contact pt at [phone] documented in this encounter Plan of Treatment Upcoming Encounters Date Type Department Care Team (Late st Contact Info) Description 02/05/2025 2:00 PM EDT Office Visit [facility] [address] [place] [address] [facility] [address] [place] [address] documented as of this encounter Visit Diagnoses Not on filedocumented in this encounter Additional Health Concerns Assessment Noted Time PHQ-9 Depression Total Score: 6 03/22/20 23 3:31 PM EDT documented as of this encounter Care Teams Toxicology Supervisor Relationship Specialty Start Date End Date [facility] [address] [place] [id number] PCP - General Family Medicine 03/08/23 documented as of this encounter
--- OUTSIDE RECORDS SUMMARY | 2024-12-20 16:33 | XMS_ITS | Clinical Summary ---
Author Organization [email or web address] Address [address] [place] [address] 7t [place] [address] Care Team Providers Care Form Presser Name Role Phone [facility] Primary Care Provider [phone] Allergies Active Allergy Reactions Criticality Noted Date Comments Shellfish Allergy Rash Medium 03/07/2023 Medications EPINEPHrine (Epipen) 0.3 MG/0.3ML injection syringe Use IM x 1 prn for sxs of anaphylaxis 9 Active multivitamin () 27-0.8 MG tablet Take 1 tablet by mouth in the morning. 90 tablet 3 3 Active Active Problems No known active problems Encounters Date Type Department Care Team Description 12/20/2024 Orders Only [facility] [address] [place], [place] [phone] Libertad Zamarripa FNP Missed menses (Primary Dx) 12/20/2024 Telephone [facility] [address] [place], [place] [phone] [facility] [employer] Lab Orders from Last 3 Months Immunizations Name Administration Dates Next Due DTaP 06/22/2008, 5,09/23/2004,03/16 DTaP, 5 pertussis antigens 01/14/2004 HPV 9-Valent 10/04/2017,11/03/2014 Hep A, ped/adol, 2 dose 04/03/2018,10/04/2017 Hep B, Adolescent or Pediatric 06/10/2004,2003,2003 HiB, unspecified 04/21/2005,03/16/2004 Hib (PRP-T) 01/14/2004 IPV 06/17/2008, 4,03/16/2004,01/14 Influenza injectable quadriv alent preservative free 02/14/2022,11/13/2020,02/04/2020,10/04,09/23/2016 MMR 06/17/2008,04/21/2005 Meningococcal MCV4P [id number]-135 02/04/2020,11/03/20 14 Pneumococcal Conjugate PCV 13 03/16/2004 Rotavirus Pentavalent 11/10/2009 Rotavirus, Unspecified 10/14/2013,12/25/2009 Tdap 11/03/2014 Varicella 06/17/2008,04/21/2005 Social History Tobacco Use Types Packs/Day Years Used Date Smoking Tobacco: Never Smokeless Tobacco: Never Tobacco Cessation:Counseling Given: Not Answered Alcohol Use Standard Drinks/Week Comments Never 0 (1 standard drink = 0.6 oz pur e alcohol) Depression Answer Date Recorded Patient Health Questionnaire-9 Score 6 03/22/2023 Housing Stability Answer Date Recorded What is your housing situation today? I do not have housing (Staying with others, in a hotel, in a jail, living outside on the street, on a [...] Orientation Straight 09/26/2022 10 :30 AM EDT Last Filed Vital Signs Vital Sign Reading Time Taken Comments Blood Pressure 110/80 03/22/2023 3:08 PM EDT Pulse 84 03/22/2023 3:08 PM EDT Temperature 37 ??C (98.6 ??F) 03/22/2023 3:08 PM EDT Respiratory Rate 20 03/22/2023 3:08 PM EDT Oxygen Saturation - - Inhaled Oxygen Concentration - - Weight 46.8 kg (103 lb 3.2 oz) 03/22/2023 3:08 P M EDT Height 157.5 cm (5' 2 ) 03/22/2023 3:08 PM EDT Body Mass Index 18.88 03/22/2023 3:08 PM EDT Plan of Treatment Upcoming Encounters Date Type Department Care Team (Late st Contact Info) Description 02/05/2025 2:00 PM EDT Office Visit [facility] [address] [place] [address] [facility] [address] [place] [address] Health Maintenance Due Date Last Done Comments Chlamydia and Gonorrhea Screening 2003 HIV Screening 2003 Alcohol/Substance Use Screening 2015 Family Planning (PISQ) 2018 Hepatitis C Screening 2021 SDOH Screening 03/07/2024 03/07/2023 Depression Screening 03/22/2024 03/22/2023, 03/22/20 23 COVID-19 Vaccine ( season) 2024 04/23/2021, 04/02/2021 Influenza Vaccine (#1) 2024 , 02/14/2022, 11/13/2020, Additional history exists Pap Smear 2024 Tobacco Screening 12/28/2024 12/28/2023 DTaP/Tdap/Td Vaccines (8 - Td or Tdap) 09/06/2033 09/06/2023, 11/03/2014, 06/22/2008, Additional history exists Zoster Vaccines (1 of 2) 2053 RSV Patients and Patients Aged 60 years or older (1 - 1-dose 75+ series) 2078 Pneumococcal Vaccine: Pediatrics (0 to 5 Years) and At-Risk Patients (6 to 64 Years) Aged Out 03/16/2004 No longer eligible based on patient's age to complete this topic Hepatitis B Vaccines Completed 06/10/2004, 01/06/2004, 2003 HIB Vaccines Completed 04/21/2005, 02/26, 01/14/2004 IPV Vaccines Completed 06/17/2008, 05/27, 03/16/2004, Additional history exists Rotavirus Vaccines Aged Out 10/14/2013, 0 12/25/2009, 11/10/2009 No longer eligible based on patient's age to complete this topic HPV Vaccines Completed 10/04/2017, 11/03/2014 Hepatitis A Vaccines Completed 04/03/2018, 10/04/20 17 Meningococcal Vaccine Completed 02/04/2020, 014 RSV under 20 months Aged Out No longe r eligible based on patient's age to [id number] Care Teams Form Presser Relationship Specialty Start Date End Date Libertad Zamarripa FNP [address] [place] [id number] PCP - General Family Medicine 03/08/23
[2024-12-20 16:55] LABS: HCG Quantitative < 2 mIU/mL
== END 2024-12-20 15:40 | disposition home or self-care (01) ==
LOC: HO.HHCL 15:39
PROVIDERS: Visit Provider Registered Nurse
DX: N92.6 Irregular menstruation, unspecified (principal)
CPT/HCPCS: 36415; 84702

== ENCOUNTER 2025-02-05 16:25 | Outpatient (REF) | payer MEDICAID, SELFPAY ==
--- OUTSIDE RECORDS SUMMARY | 2025-02-05 18:35 | XMS_ITS | Encounter Summary ---
Author Organization [employer] Address [address] [facility] 7 [place] [address] Care Team Providers Care Supervisor Cutting And Sewing Room Name Role Phone [facility] Primary Care Provider [phone] Reason for Visit * Reason Comments Pre-visit Planning (Unable to reach for PVP screening, LVM) Encounter Details Date Type Department Care Team ([facility] Contact Info) Description 01/29/2025 Patient Outreach [facility] [address] [place], [place] [phone] [facility] [address] [place] [address] Pre-visit Planning ((Unable to reach for PVP screening, LVM)) Social History Tobacco Use Types Packs/Day Years [...] with others, in a hotel, in a m[facility]p, living outside on the street, on a [...] AM EDT documented as of this encounter Progress Notes * Chioma Fry - 01/29/2025 12:35 PM EST CATHIE Bedolla. Placed outbound call to patient to complete pre-visit planning. No answer at this time. Patient name and were not confirmed. CC left voicemail requesting return call. Direct contact information provided. documented in this encounter Plan of Treatment Not on file documented as of this encounter Visit Diagnoses Not on filedocumented in this encounter Additional Health Concerns Assessment Noted Time PHQ-9 Depression Total Score: 6 03/22/20 23 3:31 PM EDT documented as of this encounter Care Teams Supervisor Cutting And Sewing Room Relationship Specialty Start Date End Date Libertad Zamarripa FNP [address] [place] [phone] PCP - General Family Medicine 03/08/23 documented as of this encounter
--- OUTSIDE RECORDS SUMMARY | 2025-02-05 18:35 | XMS_ITS | Encounter Summary ---
Author Organization [employer] Address [address] [facility] 7t [place] [address] Care Team Providers Care Locker Plant Attendant Name Role Phone [facility] Primary Care Provider [phone] Encounter Details Date Type Department Care Team (Latest Contact Info) Description 02/05/2025 Travel Social History Tobacco Use Types Packs/Day Years Used Date Smoking Tobacco: Never Smokeless Tobacco: Never Alcohol Use Standard Drinks/Week Comments Never 0 (1 standard drink = 0.6 oz pur e alcohol) Depression Answer Date Recorded Patient Health Questionnaire-9 Score 0 02/05/2025 Patient Health Questionnaire-9 Score 0 02/05/2025 Last PHQ-9: Questionnaire Data Not on file 0 02/05/2025 Housing Stability Answer Date Recorded What is your housing situation today? I do not have housing (Staying with others, in a hotel, in a custodial, living outside on the street, on a [...] Answer Date Recorded Patient Health Questionnaire-2 Score 0 02/05/2025 Comments Unknown Sex and Gender Information Value Date Recorded Sex Assigned at Female 09/26/2022 10:30 AM EDT Legal Sex Female 10:30 AM EDT Gender Identity Female 09/26/2022 10:30 AM EDT Sexual Orientation Straight 09/26/2022 10 :30 AM EDT documented as of this encounter Plan of Treatment Not on file documented as of this encounter Visit Diagnoses Not on filedocumented in this encounter Additional Health Concerns Assessment Noted Time PHQ-9 Depression Total Score: 0 02/06/20 25 2:10 PM EDT documented as of this encounter Care Teams Locker Plant Attendant Relationship Specialty Start Date End Date Libertad Zamarripa FNP [address] [place] [phone] PCP - General Family Medicine 03/08/23 documented as of this encounter
--- OUTSIDE RECORDS SUMMARY | 2025-02-05 18:35 | XMS_ITS | Encounter Summary ---
Author Organization [employer] Address [address] [place] [address] Care Team Providers Care Energy Systems Engineer Name Role Phone Hustle [facility] Primary Care Provider Reason for Visit * Reason Comments Annual Exam Encounter Details Date Type Department Care Team ([facility] Contact Info) Description 02/05/2025 2:00 PM EDT Office Visit [facility] [address] [place] [address] [facility] [address] [place] [address] Abnormal uterine bleeding (Primary Dx); Encounter for immunization Social History Tobacco Use Types Packs/Day Years [...] with others, in a hotel, in a halfway, living outside on the street, on a [...] AM EDT documented as of this encounter Last Filed Vital Signs Vital Sign Reading Time Taken Comments Blood Pressure 130/81 02/05/2025 2:08 PM EDT Pulse 96 02/05/2025 2:08 PM EDT Temperature 36.4 ??C (97.6 ??F) 02/05/2025 2:08 PM ED T Respiratory Rate 18 02/05/2025 2:08 PM EDT Oxygen Saturation 99% 02/05/2025 2:08 PM EDT Inhaled Oxygen Concentration - - Weight 48.9 kg (107 lb 12.8 oz) 02/05/2025 2:08 PM EDT Height 157.5 cm (5' 2 ) 02/05/2025 2:08 PM EDT Body Mass Index 19.72 02/05/2025 2:08 PM EDT documented in this encounter Miscellaneous Notes * Patient Education Note - Bettye Hyde MA - 02/05/2025 6:58 PM EDT Images from the original note were not included. Patient Education Table of Contents Etonogestrel Implant To view videos and all your education online visit, [email or web address] or scan this QR code with your smartphone. Access to this content will in one year. Etonogestrel Implant ?Qu?? es linsey medicamento? El ETONOGESTREL patrice la ovulaci?n y el embarazo. Pertenece a un ailyn de medicamentos llamados anticonceptivos. Linsey medicamento es helga hormona del ailyn de los progest?genos. Linsey medicamento puede ser utilizado para otros usos; si tiene alguna pregunta consulte con joiner proveedor de atenci?n m?dica o con joiner farmac?utico. MARCAS COMUNES: Implanon, Nexplanon ?Qu?? le rachana informar a mi profesional de la neema antes de stepan linsey medicamento? Necesitan saber si usted presenta alguno de los siguientes problemas o situaciones: Sangrado vaginal anormal Co?gulos sangu?neos Enfermedad vascular C?ncer de mama, c?rvix, endometrio, ovario, h?gado o ?tero Diabetes Enfermedad de la ves?cula biliar Enfermedad cardiaca o ataque cardiaco reciente Presi?n arterial amos Nivel elevado de colesterol o triglic?ridos Enfermedad renal Enfermedad hep?sonja Migra?as Convulsiones Accidente cerebrovascular Uso de tabaco Helga reacci?n al?rgica o inusual al etonogestrel, a otros medicamentos, alimentos, colorantes o conservantes Si est?? embarazada o buscando quedar embarazada Si est?? amamantando a un beb?? ?C?mo rachana utilizar linsey medicamento? Joiner equipo de atenci?n inserta linsey dispositivo carolyne debajo de la piel en la parte interior del brazo. Hable con joiner equipo de atenci?n sobre el uso de linsey medicamento en ni?os. Puede requerir atenci?n especial. Sobredosis: P?ngase en contacto inmediatamente con un centro toxicol?gico o helga bryce de urgencia siusted hoa que haya tomado demasiado medicamento.
ATENCI?N: Linsey medicamento es solo para usted. No comparta linsey medicamento con nadie. ?Qu?? sucede si me olvido de helga dosis? No se aplica en linsey ananda. ?Qu?? puede interactuar con linsey medicamento? No use linsey medicamento con ninguno de los siguientes productos: Amprenavir Fosamprenavir Linsey medicamento tambi?n podr?a interactuar con los siguientes productos: Acitretina Aprepitant Armodafinilo Bexaroteno Bosentano Carbamazepina Ciertos medicamentos antivirales para VIH o hepatitis Ciertos medicamentos para infecciones andrew?uyen, tales eric fluconazol, ketoconazol, itraconazol o voriconazol Ciclosporina Felbamato Griseofulvina Lamotrigina Modafinilo Oxcarbazepina Fenobarbital Fenito?na Primidona Rifabutina Rifampicina Rifapentina Hierba de Erath Topiramoto Puede ser que esta lista no menciona todas las posibles interacciones. Informe a joiner profesional de la neema de todos los productos a base de hierbas, medicamentos de venta bradley o suplementos nutritivos que est?? tomando. Si usted fuma, consume bebidas alcoh?licas o si utiliza drogas ilegales, ind?queselo tambi?n a joiner profesional de la neema. Algunas sustancias pueden interactuar con joiner medicamento. ?A qu?? rachana estar atento al usar linsey medicamento? Visite a joiner equipo de atenci?n para que revise joiner evoluci?n roderick?dicamente. Usar linsey medicamento no los protege ni a usted ni a joiner niko de la infecci?n por VIH ni de ninguna otra infecci?n de transmisi?n sexual. Usted debe poder sentir el implante al presionar la piel donde se insert?? con la yema de los dedos. Contacte a joiner equipo de atenci?n si no puede sentir el implante, y use un m?todo anticonceptivo nohormonal (eric condones) hasta que joiner equipo de atenci?n confirme que el implante est?? en joiner lugar. Contacte a joiner equipo de atenci?n si hoa que el implante puede haberse roto o doblado dentro del brazo. Joiner equipo de atenci?n le entregar?? helga tarjeta de usuario despu?s de insertar el implante. La tarjeta es un registro de la ubicaci?n del implante en joiner brazo e indica cu?ndo debe retirarse. Conserveesta tarjeta con tomas registros m?dicos. ?Qu?? efectos secundarios puedo tener al utilizar linsey medicamento? Efectos secundarios que debe informar a joiner equipo de atenci?n ace pronto eric sea posible: Reacciones al?rgicas: erupci?n cut?jose, comez?n/picaz?n, urticaria, hinchaz?n de la mary, los labios, la lengua o la garganta Co?gulo sangu?kaylen: dolor, hinchaz?n, calor en helga pierna, falta de aire, dolor en el pecho Problemas en la ves?cula biliar: dolor de est?joselyn intenso, n?useas, v?mitos, fiebre Aumento de la presi?n arterial Lesi?n en el h?gado: dolor en la yuliana?n abdominal superior derecha, p?rdida de apetito, n?useas, heces de color deidra, orina amarilla oscura o khari?n, color amarillento de los ojos o la piel, debilidad o fatiga inusuales Migra?as o guilherme de camille nuevos o peores Dolor, enrojecimiento o irritaci?n en el lugar de la inyecci?n Accidente cerebrovascular: entumecimiento o debilidad repentinos de la mary, un brazo o helga pierna,dificultad para hablar, confusi?n, dificultad para caminar, p?rdida de equilibrio o coordinaci?n, mareos, dolor de camille intenso, cambio en la visi?n Flujo vaginal inusual, comez?n/picaz?n u olor Empeoramiento del estado de ?crystal, sentimientos de depresi?n Efectos secundarios que generalmente no requieren atenci?n m?dica (debe informarlos a joiner equipo de atenci?n si persisten o si son molestos): Dolor o sensibilidad de las mamas Manchas oscuras en la piel de la mary o de otras ?reas expuestas al martha Ciclos menstruales irregulares o sangrado ligero entre periodos menstruales N?useas Aumento de peso Puede ser que esta lista no menciona todos los posibles efectos secundarios. Comun?quese a joiner m?dico por asesoramiento m?dico sobre los efectos secundarios. Usted puede informar los efectos secundarios a la FDA por tel?fono al [phone]. ?D?nde rachana guardar mi medicina? Linsey medicamento se administra en hospitales o cl?nicas y no es necesario guardarlo en joiner domicilio. ATENCI?N: Linsey folleto es un resumen. Puede ser que no cubra toda la posible informaci?n. Si usted tiene preguntas acerca de esta medicina, consulte con joiner m?dico, joiner farmac?utico o joiner profesional chiqui neema. ? 2024 Elsevier/Gold Standard (2023-10-04) * Patient Education Note - Bettye Hyde MA - 02/05/2025 6:58 PM EDT Images from the original note were not included. Patient Education Table of Contents Levonorgestrel Intrauterine Device (IUD) To view videos and all your education online visit, [email or web address] or scan this QR code with your smartphone. Access to this content will in one year. Levonorgestrel Intrauterine Device (IUD) ?Qu?? es linsey medicamento? El LEVONORGESTREL patrice la ovulaci?n y el embarazo. Tambi?n podr?a usarse para tratar periodos menstruales abundantes. Pertenece a un ailyn de medicamentos llamados anticonceptivos. Linsey medicamento es helga hormona del ailyn de los progest?genos. Linsey medicamento puede ser utilizado para otros usos; si tiene alguna pregunta consulte con joiner proveedor de atenci?n m?dica o con joiner farmac?utico. MARCAS COMUNES: Pipo, MELISSA, Su, Katerine ?Qu?? le rachana informar a mi profesional de la neema antes de stepan linsey medicamento? Necesitan saber si usted presenta alguno de los siguientes problemas o situaciones: Examen de Papanicolaou anormal C?ncer de mama, ?tero o c?rvix Diabetes Endometritis Infecci?n genital o p?lvica actual o en el pasado Tener m?s de helga niko sexual o si joiner niko tiene m?s de helga niko Enfermedad cardiaca Antecedentes de embarazo ect?niki o tub?rico Problemas del sistema inmunol?gico DIU colocado en joiner lugar Enfermedad o tumor hep?doris Problemas con co?gulos sangu?neos o stepan anticoagulantes Convulsiones Uso de drogas intravenosas ?tero con forma inusual Sangrado vaginal que no perdue sido explicado Helga reacci?n al?rgica o inusual al levonorgestrel, a otras hormonas, a la silicona, o al polietileno, a otros medicamentos, alimentos, colorantes o conservantes Si est?? embarazada o buscando quedar embarazada Si est?? amamantando a un beb?? ?C?mo rachana utilizar linsey medicamento? Joiner equipo de atenci?n coloca linsey dispositivo dentro del ?tero. Le entregar?n un folleto de informaci?n para el paciente cada vez que le inserten el producto. Aseg?rese de leer esta informaci?n cada vez cuidadosamente. El folleto puede cambiar frecuentemente. Hable con joiner equipo de atenci?n sobre el uso de linsey medicamento en ni?os. Puede requerir atenci?n especial. Sobredosis: P?ngase en contacto inmediatamente con un centro toxicol?gico o helga bryce de urgencia siusted hoa que haya tomado demasiado medicamento.
ATENCI?N: Linsey medicamento es solo para usted. No comparta linsey medicamento con nadie. ?Qu?? sucede si me olvido de helga dosis? No se aplica en linsey ananda. Seg?n la chayito del dispositivo que tenga insertado, el dispositivo deber?? reemplazarse cada 3 a 8 a?os si desea continuar usando linsey tipo de m?todo anticonceptivo. ?Qu?? puede interactuar con linsey medicamento? No se anticipan interacciones. Informe a joiner equipo de atenci?n sobre todos los medicamentos que amber. Puede ser que esta lista no menciona todas las posibles interacciones. Informe a joiner profesional de la neema de todos los productos a base de hierbas, medicamentos de venta bradley o suplementos nutritivos que est?? tomando. Si usted fuma, consume bebidas alcoh?licas o si utiliza drogas ilegales, ind?queselo tambi?n a joiner profesional de la neema. Algunas sustancias pueden interactuar con joiner medicamento. ?A qu?? rachana estar atento al usar linsey medicamento? Visite a joiner equipo de atenci?n para realizarse revisiones roderick?dicas. Informe a joiner equipo de atenci?n si usted o joiner niko descubre que es VIH positivo o contrae helga enfermedad de transmisi?n sexual. Usar linsey medicamento no los protege ni a usted ni a joiner niko de la infecci?n por VIH ni de ninguna otra infecci?n de transmisi?n sexual. Puede verificar la colocaci?n del DIU usted misma colocando los dedos limpios en la parte superior de la vagina para tocar los hilos. No tire de los hilos. Es un buen h?bito verificar la colocaci?n del DIU despu?s de cada per?odo menstrual. Llame a joiner equipo de atenci?n de inmediato si siente m?s del DIU que solo los hilos o si no puede sentir los hilos. El DIU podr?a salirse solo. Es posible que quede embarazada si el dispositivo se sale. Si nota que se perdue salido el DIU use un m?todo anticonceptivo de respaldo, eric condones, y llame a joiner equipo de atenci?n. Usar tampones no cambiar?? la posici?n del DIU y puede usarlos sin problema matthew tomas per?odos menstruales. Linsey DIU puede escanearse en forma wong en helga resonancia magn?sonja (MRI) solo bajo condiciones espec?ficas. Antes de realizarse helga resonancia magn?sonja, informe a joiner equipo de atenci?n que tiene colocado un DIU y el tipo de DIU que tiene. ?Qu?? efectos secundarios puedo tener al utilizar linsey medicamento? Efectos secundarios que debe informar a joiner equipo de atenci?n ace pronto eric sea posible: Reacciones al?rgicas: erupci?n cut?jose, comez?n/picaz?n, urticaria, hinchaz?n de la mary, los labios, la lengua o la garganta Co?gulo sangu?kaylen: dolor, hinchaz?n, calor en helga pierna, falta de aire, dolor en el pecho Problemas en la ves?cula biliar: dolor de est?joselyn intenso, n?useas, v?mitos, fiebre Aumento de la presi?n arterial Lesi?n en el h?gado: dolor en la yuliana?n abdominal superior derecha, p?rdida de apetito, n?useas, heces de color deidra, orina amarilla oscura o khari?n, color amarillento de los ojos o la piel, debilidad o fatiga inusuales Migra?as o guilherme de camille nuevos o peores Enfermedad inflamatoria p?lvica: fiebre, dolor abdominal, dolor o dificultad para orinar, sangrado entre periodos menstruales, sangrado matthew o despu?s de las relaciones sexuales Accidente cerebrovascular: entumecimiento o debilidad repentinos de la mary, un brazo o helga pierna,dificultad para hablar, confusi?n, dificultad para caminar, p?rdida de equilibrio o coordinaci?n, mareos, dolor de camille intenso, cambio en la visi?n Flujo vaginal inusual, comez?n/picaz?n u olor Dolor, irritaci?n o llagas en la vagina Empeoramiento del estado de ?crystal, sentimientos de depresi?n Efectos secundarios que generalmente no requieren atenci?n m?dica (debe informarlos a joiner equipo de atenci?n si persisten o si son molestos): Dolor o sensibilidad de las mamas Manchas oscuras de la piel en la mary u otras ?reas expuestas al martha Ciclos menstruales irregulares o sangrado ligero entre periodos menstruales N?useas Aumento de peso Puede ser que esta lista no menciona todos los posibles efectos secundarios. Comun?quese a joiner m?dico por asesoramiento m?dico sobre los efectos secundarios. Usted puede informar los efectos secundarios a la FDA por tel?fono al [phone]. ?D?nde rachana guardar mi medicina? No se aplica en linsey ananda. ATENCI?N: Linsey folleto es un resumen. Puede ser que no cubra toda la posible informaci?n. Si usted tiene preguntas acerca de esta medicina, consulte con joiner m?dico, joiner farmac?utico o joiner profesional chiqui neema. ? 2024 Elsevier/Gold Standard (2022-10-05) documented in this encounter Plan of Treatment Scheduled Orders Name Type Priority Associated Diagnoses Orde r Schedule Bacterial Vaginosis Panel Microbiology Routine Abnormal uterine bleeding Ordered: 02/05/2025 Chlamydia/N. Gonorrhoeae RNA, TMA, Urogenitial Microbiology Routine Abnormal uterine bleeding Ordered: 02/05/2025 documented as of this encounter Procedures Procedure Name Priority Date/Time Associated Diagnosis Comments POCT , URINE Routine 02/05/2025 2:56 PM EDT Abnormal uterine bleeding documented in this encounter Results * POCT Urine (02/05/2025 2:56 PM EDT) Preg Test, Ur Negative Negative, Indeterminate, None Detected, Invalid, Specimen unsatisfactory for evaluation, Weakly Positive Urine 02/05/2025 2:56 PM EDT [facility] POINT OF CARE TEST ENTER/EDIT ORDERABLES Final Result documented in this encounter Visit Diagnoses Diagnosis Abnormal uterine bleeding- Primary Unspecified disorder of menstruation and other abnormal bleeding from female genital tract Encounter for immunization documented in this encounter Additional Health Concerns Assessment Noted Time PHQ-9 Depression Total Score: 0 02/06/20 25 2:10 PM EDT documented as of this encounter Care Teams Energy Systems Engineer Relationship Specialty Start Date End Date DallinLibertad farfan FNP [address] [place] [phone] PCP - General Family Medicine 03/08/23 documented as of this encounter
--- OUTSIDE RECORDS SUMMARY | 2025-02-05 18:35 | XMS_ITS | Clinical Summary ---
Author Organization [employer] Address [address] [place] [address] 7 [place] [address] Care Team Providers Care Telecommunication Tower Technician Name Role Phone Libertad Zamarripa [facility] Primary Care Provider [phone] Allergies Active Allergy Reactions Criticality Noted Date Comments Shellfish Allergy Rash Medium 03/07/2023 Medications EPINEPHrine (Epipen) 0.3 MG/0.3ML injection syringe Use IM x 1 prn for sxs of anaphylaxis 9 Active multivitamin () 27-0.8 MG tablet Take 1 tablet by mouth in the morning. 90 tablet 3 3 Active levonorgestrel (Plan B) 1.5 MG tabletIndicatio ns:Abnormal uterine bleeding Take 1 tablet (1.5 mg) by mouth 1 (one) time for 1 dose. 1 tablet 5 02/06/20 25 Active norethindrone (Ortho Micronor) 0.35 MG tabletIndicatio ns:Abnormal uterine bleeding Take 1 tablet (0.35 mg) by mouth Once per day. 28 tablet 12 5 02/06/20 26 Active Active Problems No known active problems Encounters Date Type Department Care Team Description 02/05/2025 2:00 PM EDT Office Visit [facility] [address] [place] [address] Libertad Zamarripa FNP Abnormal uterine bleeding (Primary Dx); Encounter for immunization 02/05/2025 Travel 01/29/2025 Patient Outreach [facility] [address] [place] [address] Libertad Zamarripa FNP Pre-visit Planning ((Unable to reach for PVP screening, LVM)) 12/24/2024 Telephone [facility] [address] [facility] [place] [id number] Lucrecia Romero, RN Results 12/20/2024 Orders Only [facility] [address] [place] [address] HammontonLibertad FNP Missed menses (Primary Dx) 12/20/2024 Telephone [facility] [address] [facility] [place] [id number] HammontonLibertad [facility] Lab Orders from Last 3 Months Immunizations Name Administration Dates Next Due DTaP 06/22/2008, 5,09/23/2004,03/16 DTaP, 5 pertussis antigens 01/14/2004 HPV 9-Valent 10/04/2017,11/03/2014 Hep A, ped/adol, 2 dose 04/03/2018,10/04/2017 Hep B, Adolescent or Pediatric 06/10/2004,2003,2003 HiB, unspecified 04/21/2005,03/16/2004 Hib (PRP-T) 01/14/2004 IPV 06/17/2008, 4,03/16/2004,01/14 Influenza injectable quadriv alent preservative free 02/14/2022,11/13/2020,02/04/2020,10/04,09/23/2016 Influenza, seasonal, injecta ble, preservative free 02/05/2025 MMR 06/17/2008,04/21/2005 Meningococcal MCV4P ACYW-135 02/04/2020,11/03/20 14 [...] with others, in a hotel, in a assisted, living outside on the street, on a [...] Mass Index 19.72 02/05/2025 2:08 PM EDT Plan of Treatment Health Maintenance Due Date Last Done Comments Chlamydia and Gonorrhea Screening 2003 HIV Screening 2003 Alcohol/Substance Use Screening 2015 Family Planning (PISQ) 2018 Hepatitis C Screening 2021 SDOH Screening 03/07/2024 03/07/2023 COVID-19 Vaccine ( season) 2024 04/23/2021, 04/02/2021 Pap Smear 2024 Depression Screening 02/05/2026 02/05/2025, 02/06/20 Tobacco Screening 02/05/2026 02/05/2025 DTaP/Tdap/Td Vaccines (8 - Td or Tdap) 09/06/2033 09/06/2023, 11/03/2014, 06/22/2008, Additional history exists Zoster Vaccines (1 of 2) 2053 RSV Patients and Patients Aged 60 years or older (1 - 1-dose 75+ series) 2078 Pneumococcal Vaccine: Pediatrics (0 to 5 Years) and At-Risk Patients (6 to 49) Years) Aged Out 03/16/2004 No longer eligible [...] 10/04/20 17 Meningococcal Vaccine Completed 02/04/2020, 014 Influenza Vaccine Completed 02/05/2025, , 02/14/2022, Additional history exists RSV under 20 months Aged Out No longe r eligible based on patient's age to complete this topic Procedures Procedure Name Priority Date/Time Associated Diagnosis Comments POCT , URINE Routine 02/05/2025 2:56 PM EDT Abnormal uterine bleeding HCG, TOTAL, QN Routine 12/20/2024 3:40 PM EST Missed menses from Last 3 Months Results * POCT Urine (02/05/2025 2:56 PM EDT) Preg Test, Ur Negative Negative, Indeterminate, None Detected, Invalid, Specimen unsatisfactory for evaluation, Weakly Positive Urine 02/05/2025 2:56 PM EDT [facility] POINT OF CARE TEST ENTER/EDIT ORDERABLES Final Result * hCG, Total, Quantitative (12/20/2024 3:40 PM EST) HCG Quantitative <2 mIU/mL [facility] Comment:Weeks post LMP Appro ximate hCG(Last Menstrual Period) Range (mIU/ml)3 - 4 weeks 9 - 1304 - 5 weeks 75 - 2,6005 - 6 weeks 850 - 20,8006 - 7 weeks 4000 - 100,2007 - 12 weeks 11,500 - 289,26188 - 16 weeks 18,300 - 137,77045 - 29 weeks (2nd trimester) 1,400 - 53,83708 - 41 weeks (3rd trimester) 940 - 60,000The [place] B- hCG assay is used for the early detection ofpregnancy; it cannot be used to diagnose any conditionunrelated to . If a B-hCG level is not supportedby the clinical evidence, results should be confirmed by analternative method (qualitative urine hCG, for example). Blood Venous blood specimen / Unknown 12/20/2024 3:40 PM EST 12/20/2024 4:10 PM EST [facility] LAB BLOOD ORDERABLES Final Re sult [facility] [address] [place] [phone] from Last 3 Months Insurance C3 Care Teams Telecommunication Tower Technician Relationship Specialty Start Date End Date Libertad Zamarripa FNP [address] [place] [phone] PCP - General Family Medicine 03/08/23
[2025-02-06 05:29] LABS: CT PCR NOT DETECTED (Not Detect.); NG PCR NOT DETECTED (Not Detect.)
[2025-02-06 09:19] LABS: Bacterial Vaginosis PCR NEGATIVE (Negative); Candida Group PCR DETECTED (Not Detect); Candida glab krusei PCR NOT DETECTED (Not Detect); Trichomonas vaginalis PCR NOT DETECTED (Not Detect)
== END 2025-02-05 16:26 | disposition home or self-care (01) ==
LOC: HO.HHCLNP 16:25
PROVIDERS: Visit Provider Registered Nurse
DX: N93.9 Abnormal uterine and vaginal bleeding, unspecified (principal)
CPT/HCPCS: 81515; 87491; 87591